=== PATIENT | male | born 1985 | race Caucasian/White ===

== ENCOUNTER 2016-05-06 09:09 | Day surgery (SDC) | payer BC ==
[2016-05-01 14:54] VITALS: BMI 25.0
[~2016-05-06 09:09] MED LIST: LACTATED RINGERS 1,000 ML IV SCH; LIDOCAINE 1% 20 ML VIAL (10MG/ML) FOR IV START INTRADERMA PRN
[2016-05-06 10:15] VITALS: RESP 18; TEMP 96.8
[2016-05-06] MEDS ORDERED: LIDOCAINE 1% 20 ML VIAL (10MG/ML) FOR IV START INTRADERMA ONE (10:25)
--- NOTE | 2016-05-06 11:53 | P.PCN ---
Date of Procedure: 05/06/16 Procedure(s) Performed: Procedure: Colonoscopy and biopsy. Preoperative diagnosis: Diarrhea. Postoperative diagnosis: Exam of the colon and terminal ileum within normal limits. Preparation: HalfLytely prep. Sedation: Was provided by anesthesia. Brief clinical history: The patient is a 30-year-old male who was evaluated in the office earlier this month for further evaluation of diarrhea. The patient apparently had chronic diarrhea and it sort of worsened after he was diagnosed with Hodgkin's lymphoma in 2012. The patient had colonoscopy 5 years ago, part of the workup of anemia that at that time was unexplained that turned out to be secondary to his lymphoma. He has received chemotherapy back then and currently he is on any medications to blame. There is no family history of inflammatory bowel disease. The patient has no extraintestinal manifestations of inflammatory bowel disease. Procedure: With the patient on his left lateral decubitus position and after informed consent and adequate sedation, the perianal area was inspected and it did not show any fissures or fistulas. There were no masses felt on digital rectal examination. The Olympus CFQ 160LVideo colonoscope was then inserted in the rectum in the usual fashion and advanced to the cecum. I intubated the ileocecal valve and examined the terminal ileum. Terminal ileum and colon appeared healthy with no edema, erythema, friability, ulceration, exudation or spontaneous bleeding. No polyps or tumors were seen or any obvious diverticular disease or other pathology. I obtained biopsies from the terminal ileum and right colon then I retroflexed endoscope in the rectum before the endoscope was withdrawn. The patient tolerated the procedure well. Plan: The patient was reassured. Will await biopsy results. Further plans will be made based on his course and biopsy results. We will keep you updated on his progress.
[2016-05-06 12:07] VITALS: BP 94/63; PULSE 52
== END 2016-05-06 13:04 | disposition home or self-care (01) ==
LOC: ORWHC2ENDO 09:09
DX: R19.7 Diarrhea, unspecified (principal); Z88.2 Allergy status to sulfonamides
CPT/HCPCS: 45380; 88305